=== PATIENT | female | born 1940 | race Caucasian/White ===

== ENCOUNTER 2018-06-16 08:20 | Observation (INO) ==
--- NOTE | 2018-06-11 14:02 | Anesthesiology Consultation ---
Date of Service June 11, 2018 Assessment & Plan (1) Encounter for pre-operative examination: Chart Review Chart Review: Acceptable Risk for Surgery and Patient NOT seen in Pre Admission Testing History Surgery Operation Date: 06/16/18 13:50 Proposed Procedures p Left Breast Lumpectomy with Needle Localization and Left [place] Lymph Node Biopsy (Injection Only) - Wilver Alexander MD, FACS Height/Weight Height: 5 ft 3 in Weight: 79.379 kg Allergies Allergy/AdvReac Type Severity Reaction Status Date / Time Penicillins Allergy Unknown Rash Verified 06/06/18 13:26 Medications Home Medications Medication Instructions Recorded Confirmed Last Taken calcium carbonate [Calcium 600] 600 mg PO BID 06/06/18 06/06/18 Unknown garlic 1,000 mg PO QAM 06/06/18 06/06/18 Unknown lisinopril 5 mg PO QAM 06/06/18 06/06/18 Unknown metformin 500 mg PO QAM 06/06/18 06/06/18 Unknown multivitamin 1 tab PO QAM 06/06/18 06/06/18 Unknown simvastatin 20 mg PO HS 06/06/18 06/06/18 Unknown Past Medical History Medical History Abnormal EKG Noted on most recent PCP office visit note, and seen on pre-op testing. Echo 2010 WNL. Cancer HX CERVICAL Cardiac murmur NO VALVULAR DISEASE NOTED ON 10/19/10 ECHO Diabetes mellitus, type 2 Hyperlipidemia Hypertension Obesity Past Family History Family History Brother Family history of diabetes mellitus Past Surgical History Surgical History History of appendectomy History of hysterectomy TOTAL Social History Smoking Status: Never smoker Do You Dip or Chew Tobacco: No Hx Alcohol Use: No Hx Substance Use: No Testing Electrocardiogram Date: 06/03/18 Findings: + NSR @ (70) Possible LAE. Possible lateral infarct, age undetermined. *received 2010 EKG from PCP for comparison. Appears very similar by visual comparison. 2011 EKG notes SR @ 65 with early precordial R/S transition, LVE with secondary repolarization abnormality and baseline wander in leads V5, V6. Echocardiogram Date: 10/19/10 EF: 70% Normal LV function. Normal RV size and function. Normal atria. Normal, trileaflet valve. There is no aortic regurgitation. There is no mitral regurgitation. The mitral valve is thickened. Normal tricuspid valve. Normal pulmonic valve. Laboratory Results Laboratory Tests 05/09/18 05/09/18 13:37 13:37 WBC 7.65 Hgb 14.4 Hct 43.9 Plt Count 235 Sodium 139 Potassium 4.3 Chloride 102 Carbon Dioxide 31 BUN 19 H Creatinine 0.87 Glucose 105 H
[~2018-06-16 08:20] MED LIST: CEFAZOLIN 2000MG 2,000 MG/15 ML SYR IV SCH; LR 15ML/HR IV SCH
--- NOTE | 2018-06-16 10:06 | Nuclear Medicine Report ---
LYMPHOSCINTIGRAPHY CLINICAL HISTORY: Left breast cancer. PROCEDURE: Using standard sterile technique, 4 periareolar intradermal and one deep injection of 0.51 9 mCi of Lymphoseek was placed in the left breast at 9:15. The patient tolerated the procedure well. There were no immediate complications. The patient was subsequently transported to the surgical suite . No imaging was obtained at the referring physician's request. IMPRESSION: Injection of 0.519 mCi of Lymphoseek in the left breast. Electronically signed by: Calvin Pandya M.D. 06/16/2018 10:05 AM
[2018-06-16] MEDS ORDERED: ONDANSETRON INJ 2 MG/ML 2 ML VIAL ONE (11:36)
[2018-06-16] MEDS ORDERED: PROPOFOL IV EMULSION 10 MG/ML 20 ML VIAL IV ONE (11:36)
[2018-06-16] MEDS ORDERED: LIDOCAINE HCL 2% 2 ML VIAL/AMP(20MG/ML) INFIL ONE (11:36)
[2018-06-16] MEDS ORDERED: fentaNYL citrate 100 MCG/2 ML VIAL ONE (11:36)
[2018-06-16] MEDS ORDERED: ePHEDrine sulfate 50 MG/ML AMP IV PRN (11:45)
[2018-06-16] MEDS ORDERED: FLUMAZENIL 0.1 MG/1 ML 10 ML VIAL IV PRN (11:45)
[2018-06-16] MEDS ORDERED: PROMETHAZINE HCL 12.5 MG in SODIUM CHLORIDE 0.9% 50 ML IV PRN ×2 (11:45→16:59)
[2018-06-16] MEDS ORDERED: NALOXONE HCL 0.4 MG/1 ML VIAL/CARP IV PRN (11:45)
[2018-06-16] MEDS ORDERED: fentaNYL citrate 100 MCG/2 ML VIAL IV PRN (11:45)
[2018-06-16] MEDS ORDERED: ATROPINE SULFATE 0.1 MG/ML 10ML SYR IV PRN (11:45)
[2018-06-16] MEDS ORDERED: ONDANSETRON INJ 2 MG/ML 2 ML VIAL IV PRN ×2 (11:45→16:59)
[2018-06-16] MEDS ORDERED: LABETALOL HCL IV 5 MG/ML 20ML IV PRN (11:45)
--- NOTE | 2018-06-16 13:58 | History & Physical Bridge Note ---
Date of Service June 16, 2018 History & Physical Bridge Note I have examined the patient, reviewed the History & Physical and in the interval since the performance of the History & Physical I have noted the following changes of clinical significance: no changes noted
[2018-06-16] MEDS ORDERED: METHYLENE BLUE 0.5% 10 ML VIAL ONE (14:09)
[2018-06-16] MEDS ORDERED: BUPIVACAINE 0.5 % 5 MG/1 ML MPF 30ML VIAL ONE (14:09)
[2018-06-16] MEDS ORDERED: ePHEDrine sulfate 50 MG/ML SYR ONE (15:03)
--- NOTE | 2018-06-16 15:50 | Operative Report ---
Post Operative Report Pre & Post Diagnosis Operation Date: 06/16/18 13:50 Pre-Op Diagnosis: Left Breast Cancer Post-Op Diagnosis: Left Breast Cancer Procedure Operation Date: 06/16/18 13:50 Actual Procedures p Left Breast Lumpectomy with Needle Localization and Left [place] Lymph Node Biopsy (Left) - Wilver Alexander MD, FACS Surgeon Wilver Alexander MD, FACS Tile Machine Operator Dottie Patterson Estimated Blood Loss 10 Findings Consistent with Post-Op Diagnosis Specimens Lt axillary LNs and Lt breast tissue Description of Procedure see dictation I attest to the content of the Intraoperative Record and any orders documented therein. Any exceptions are noted below.
[2018-06-16] MEDS ORDERED: ACETAMINOPHEN 1,000 MG/100 ML VIAL IV ONE (15:53)
[2018-06-16] MEDS ORDERED: ACETAMINOPHEN 1000 MG/100 ML IV IV ONE (16:17)
--- NOTE | 2018-06-16 16:29 | Anesthesiology Progress Note ---
Date of Service June 16, 2018 Anesthesia Post Procedure Vital Signs Vital Signs: Temp Pulse Pulse Resp BP Pulse Ox 06/16/18 16:05 36.1 C L 66 16 141/81 H 99 06/16/18 09:43 36.6 C 70 20 142/104 H 96 Notes Mental Status: alert / awake / arousable Patient Amnestic to Procedure: Yes Nausea / Vomiting: adequately controlled Pain: adequately controlled Airway Patency, RR, SpO2: stable & adequate BP & HR: stable & adequate Hydration State: stable & adequate Anesthetic Complications: no major complications apparent
--- NOTE | 2018-06-16 16:45 | Consultation ---
Date of Consultation June 16, 2018 Assessment & Plan (1) S/P lumpectomy, left breast: S/P L breast lumpectomy with sentinel node bx by Dr. Alexander POD #0 EBL 10ml Tolerated procedure well Pain/wound management per surgery Activity/diet per surgery VTE prophylaxis per surgery (2) Diabetes mellitus, type 2: glucose 95 Hold outpt metformin Novolog sliding scale while inpatient well controlled (3) Hypertension: Bp controlled continue Lisinopril (4) Hyperlipidemia: continue statin (5) DVT prophylaxis: Per surgery, encourage ambulation Disposition: per surgery Follow up: PCP Dr. Boone Patient was seen and examined in collaboration with Dr. Ramos, please see addendum Starting 06/17/18 patient will be under the care of Dr. Smith Thank you for this consultation. We will follow the patient with you during their hospital stay. You can reach a member of the [facility] Hospitalist Team 24/09 via pager @ [phone]. Supervising Physician Co-Signing Physician Notes I have seen and examined the patient and have discussed the case with the provider above. I agree with the assessment and plan as stated. DO Richard History of Present Illness Reason for Consultation: Post op medical management Requesting Physician: Dr. Alexander Attending Physician: Wilver Alexander MD, [facility] History of Present Illness This is a 78 year old F with a significant PMH of HTN, T2DM, HLD who presents to [facility] for elective L breast Lumpectomy by Dr. Alexander. Pt recently dx with L breast Ca follows Dr. Tam for oncology. She underwent elective L breast lumpectomy with sentinel node biopsy by Dr. Alexander. Overall she tolerated procedure well. W e have been consulted for med management. She complains of mild incisional discomfort. Denies f/c/s, chest pain, sob, cough, n/v/d, no change in bowel or urinary habits. Allergies Allergy/AdvReac Type Severity Reaction Status Date / Time Penicillins Allergy Unknown Rash Verified 06/16/18 09:51 Home Medications Home Medications Medication Instructions Recorded Confirmed Type calcium carbonate [Calcium 600] 600 mg PO BID 06/06/18 06/16/18 History garlic 1,000 mg PO QAM 06/06/18 06/16/18 History lisinopril 5 mg PO QAM 06/06/18 06/16/18 History metformin 500 mg PO QAM 06/06/18 06/16/18 History multivitamin 1 tab PO QAM 06/06/18 06/16/18 History simvastatin 20 mg PO HS 06/06/18 06/16/18 History Patient History Family History Brother Family history of diabetes mellitus Social History Preferred Language: [place] Citizen Communication Ability: Effective Tdp Displays Analyst Required: No Beliefs That Will Affect Care: None Current Living Situation: Spouse Other Information That Helps Us Care for You: No Feels Safe at Home: Yes Safety Concerns: Feels Safe At This Time Smoking Status: Never smoker Hx Alcohol Use: No Hx Substance Use: No Review of Systems As noted per HPI, 10 systems reviewed and negative unless noted above. Physical Exam Vital Signs (Past 24 Hours): Last Vital Signs Temp 36.1 C L 06/16/18 16:05 Pulse 60 06/16/18 16:35 Resp 20 06/16/18 16:35 BP 127/96 06/16/18 16:35 Pulse Ox 98 06/16/18 16:35 Physical Exam: Gen: WD/WN, appears stated age, F, NAD, sitting up in bed, drowsy but pleasant, conversing easily Head: Normocephalic, Atraumatic Eyes: Sclera normal, no conjunctival injection, PERRLA, EOMI ENT: Gross hearing intact, normal pharynx, mucous membranes moist, dentition absent Neck: supple, no adenopathy, No JVD, no bruit, Chest Wall: L chest wall incision dressing CDI Resp: Clear to auscultation b/l, no wheeze, rales, rhonchi. Normal insp/exp effort, no accessory muscle use CV: Regular rate, regular rhythm, no murmur, rub, gallop, or ectopy Abd: +BS x 4, soft, nontender, nondistended Musculoskeletal: moves extremities active rom x 4, strength intact, good trademark paralegal strength Extremities: No edema bilaterally, SCDS b/l Skin: warm, moist, no rash, negative turgor, cap refill < 2sec Neuro: Alert and oriented x 3, speech normal, good mood/affect, cran nerve 2-12 intact grossly : deferred Results & Data Laboratory Results Preoperative lab work: CBC: WBC 7.65, hemoglobin 14.4, hematocrit 43.9, platelet 235 BMP: Sodium 139, potassium 4.3, chloride 102, CO2 31, BUN 19, creatinine 0.87, glucose 105 ECG Rate (beats per minute): 70 Rhythm: normal sinus (1) Diabetes mellitus, type 2 Diabetes mellitus complication status: without complication Diabetes mellitus intermediate insulin use: without intermediate project manager use Qualified Code(s): E11.9 - Type 2 diabetes mellitus without complications (2) Hyperlipidemia Hyperlipidemia type: unspecified Qualified Code(s): E78.5 - Hyperlipidemia, unspecified (3) Hypertension Hypertension type: essential hypertension Qualified Code(s): I10 - Essential (primary) hypertension
[2018-06-16] MEDS ORDERED: SODIUM CHLORIDE 0.9% 1000ML 1,000 ML IV SCH (16:59)
[2018-06-16] MEDS ORDERED: MoRPHine SULFATE 2 MG/ML CARP IV PRN (16:59)
[2018-06-16] MEDS ORDERED: HYDROCODONE/ACETAMOPHEN 5/325MG TAB PO PRN ×2 (16:59)
[2018-06-16] MEDS ORDERED: GLUCOSE 10 TABS/TUBE PO PRN (16:59)
[2018-06-16] MEDS ORDERED: GLUCAGON FOR INJ 1 MG VIAL SQ PRN (16:59)
[2018-06-16] MEDS ORDERED: CARBOHYDRATES FOR HYPOGLYCEMIA PO PRN (16:59)
[2018-06-16] MEDS ORDERED: GLUCOSE 40% GEL 15 GM TUBE PO PRN (16:59)
[2018-06-16] MEDS ORDERED: DEXTROSE 50% 50 ML SYRINGE IV PRN (16:59)
[2018-06-16] MEDS ORDERED: ACETAMINOPHEN 325 MG TAB ONE (17:55)
[2018-06-16] MEDS: INSULIN ASPART 100 UNITS/ML 3 ML PEN SC SCH ×2 (18:30→21:18)
[2018-06-16] MEDS ORDERED: ACETAMINOPHEN 325 MG TAB PO PRN (21:00)
[2018-06-16] MEDS ORDERED: SIMVASTATIN 20 MG TAB PO SCH (21:00)
[2018-06-16] MEDS: CEFAZOLIN 1000MG 1,000 MG/7.5 ML SYR IV SCH (21:10)
--- NOTE | 2018-06-17 00:26 | Operative Report ---
DATE OF OPERATION: 06/16/2018 NAME OF OPERATION: Left lumpectomy with sentinel lymph node biopsy. PREOPERATIVE DIAGNOSIS: Left breast cancer. POSTOPERATIVE DIAGNOSIS: Left breast cancer. STAFF SURGEON: Wilver Alexander MD MAINTENANCE SHOP WELDER: Tasha Patterson PA-C. ANESTHESIA: General. PROCEDURE: The patient was brought in the operating room and placed on the operating table in supine position. Her left breast and axilla were prepped and draped in usual fashion. Her left arm extended on an arm board. She had a needle placed in the inferior left breast and had injection for sentinel lymph node biopsy. Incision was made in the left axilla using 0.5% plain Marcaine to anesthetize skin at both incisions. Dissection was carried down deeply, identifying what appeared to be a small sentinel lymph node. There were actually 2 lymph nodes, they were negative on frozen section. During the frozen section, we performed lumpectomy making incision around the needle inferiorly in the breast, dissecting the tissue around the needle. The tissue was then marked left breast tissue with the needle inferior, long silk suture lateral, short silk suture medial, plain suture was anterior/superior toward the nipple. Additional superior tissue was taken. It was marked with a long silk suture lateral, short silk suture medial and methylene blue new margin which was superior toward the nipple. Additional inferior tissue was taken. It was marked long silk suture lateral, short silk suture medial and methylene blue new margin. Clips were placed in the area of the tumor. Dr. Jordan did look at the tissue in the Faxitron, the clip was in the center. Deep tissue was reapproximated using 2-0 plain catgut suture in both and then the left axilla closed using 4-0 nylon suture for the skin. The breast was closed using interrupted 5-0 Prolene suture. Dressings applied and patient transferred to recovery room in stable condition. My certified surgical assistant helped with prepping, draping, excision of the breast and axillary tissue and closure of the wounds. I attest to the content of the Intraoperative Record and any orders documented therein. Any exception s are noted below.
[2018-06-17 03:42] VITALS: O2SAT 93
[2018-06-17] MEDS: CEFAZOLIN 1000MG 1,000 MG/7.5 ML SYR IV SCH (05:45)
[2018-06-17 07:01] VITALS: BP 120/73; PULSE 61; TEMP 98.4
--- NOTE | 2018-06-17 07:47 | Anesthesiology Progress Note ---
Date of Service June 17, 2018 Anesthesia Post Procedure Vital Signs Vital Signs: Temp Pulse Pulse Resp BP Pulse Ox 06/17/18 07:00 36.9 C 61 16 120/73 93 06/17/18 03:41 37.1 C 60 16 131/83 93 06/16/18 23:06 36.8 C 65 16 115/71 95 06/16/18 19:50 36.8 C 64 16 119/71 96 06/16/18 19:00 37.1 C 61 16 120/73 97 06/16/18 17:58 36.4 C L 59 L 16 129/76 94 06/16/18 17:28 36.6 C 60 18 137/78 94 06/16/18 16:55 36.6 C 59 L 14 136/65 93 06/16/18 16:45 36.0 C L 60 16 141/81 H 95 06/16/18 16:35 60 20 127/96 98 06/16/18 16:25 61 13 145/66 H 100 06/16/18 16:15 63 17 147/80 H 100 06/16/18 16:05 36.1 C L 66 16 141/81 H 99 06/16/18 09:43 36.6 C 70 20 142/104 H 96 Pain Intensity Left Breast: Pain Intensity: 0 Notes Mental Status: alert / awake / arousable and participated in evaluation Patient Amnestic to Procedure: Yes Nausea / Vomiting: adequately controlled Pain: adequately controlled Airway Patency, RR, SpO2: stable & adequate BP & HR: stable & adequate Hydration State: stable & adequate Anesthetic Complications: no major complications apparent
[2018-06-17] MEDS ORDERED: LISINOPRIL 5 MG TAB PO SCH (09:00)
[2018-06-17] MEDS: INSULIN ASPART 100 UNITS/ML 3 ML PEN SC SCH (09:38)
--- NOTE | 2018-06-17 11:28 | Discharge Summary ---
PRINCIPAL DIAGNOSIS: Left breast cancer. PROCEDURES: The patient underwent needle localization, left breast lumpectomy with sentinel lymph node biopsy. HISTORY OF PRESENT ILLNESS: The patient is a 78-year-old female with biopsy proven left breast cancer. She was brought into the hospital for definitive surgery. The patient was brought into the hospital on 06/17/2018. She had undergone needle localization and then left breast injection. She was taken to the operating room where she underwent left sentinel lymph node biopsy which was negative on 2 nodes and then left lumpectomy which she tolerated very well and has done well overnight and is felt stable for discharge home today to be followed in the surgical clinic within 1 week.
--- NOTE | 2018-06-17 15:22 | Mammography Report ---
NEEDLE LOCALIZATION LEFT BREAST: 06/16/2018 CLINICAL HISTORY: 78-year-old woman with recent biopsy-proven carcinoma in the 3:00 middle to posteri or left breast. Patient presents for ultrasound-guided needle localization prior to lumpectomy. COMPARISON: Prior outside mammograms dated 04/02/2018, 04/10/2018, 09/03/2016, 08/04/2015, 03/15/2014, 014, 02/19/2013, 12/12/2009 PATIENT CONSENT: The risks of the procedure were explained to the patient and informed consent was o btained. The patient denied eating or drinking anything this morning that would preclude anesthesia. She also denied allergy to lidocaine. A timeout was performed and the left breast was confirmed as a site for preoperative localization. PROCEDURE DESCRIPTION: Prior left breast mammograms and ultrasounds were reviewed. The hypoechoic 1. 5 cm mass in the 3:00 left breast, 10 cm from the nipple, is the intended target for preoperative loc alization. With the patient in the right lateral decubitus position, the repeat targeted ultrasound was performed in the 3:00 left breast. The irregular and ill-defined hypoechoic solid shadowing mass is identified and amenable to ultrasound-guided localization. The skin of the left breast was clean sed with Betadine and sterile drapes were placed. 1% buffered Lidocaine without epinephrine was admi nistered as local anesthesia. A 5cm Mustafa II needle and wire combination was inserted into the left breast through the mass in question, near the echogenic biopsy clip. Optimal positioning was confir med and the wire was locked in place, leaving both the needle and wire within the breast, as per surg jules's preference. Post ultrasound localization left CC and ML 2D and tomosynthesis mammograms were obtained. These sathish mograms demonstrate the localizing needle and wire coursing through the spiculated mass and associate d biopsy clip in question. The entire procedure including approach and needle length were discussed with the operating surgeon prior to surgery. The patient tolerated the procedure well and there was no immediate complication. She was transported and escorted to the hospital operating room in satisf actory condition. A specimen radiograph was obtained which demonstrates the spiculated mass, metallic biopsy clip and l ocalizing needle/wire combination within the specimen. Given this magnified view, internal calcifica tions are also demonstrated within the mass. IMPRESSION: NEEDLE LOCALIZATION Status post preoperative needle wire localization for a biopsy-proven carcinoma in the 3:00 middle to posterior left breast. The imaged specimen includes the intended abnormality. Final surgical patho logy is pending. Kayla Jordan M.D. ay/:06/16/2018 15:33:59 Pigment Weigher: RT Tulio(Elizabeth)(M), [facility]
== END 2018-06-17 12:45 | disposition home health service (06) ==
LOC: 3W 08:20 → ASU 08:20